=== PATIENT | male | born 1960 | race Caucasian/White ===

== ENCOUNTER 2023-09-11 01:58 | Emergency (ER) | payer BC, SELFPAY ==
[2023-09-11 02:02] VITALS: BP 190/102
--- NOTE | 2023-09-11 04:10 | ED.GENMED ---
History of Present Illness
<SILVERIO Lincoln - Last Filed: 09/11/23 04:22>
General
Chief Complaint: Abdominal Pain
Source: patient and spouse
Time Seen by Provider: 09/11/23 04:01
Travel History
Have you had any contact with someone who has COVID-19?: No
Do you have any symptoms of coronavirus? Fever > 100 degrees, chills, cough, shortness of breath, sore throat, loss of taste or smell, muscle aches, or headache?: No
History of Present Illness
History of Present Illness:
62 year old male with hx of stomach ulcers and diverticulitis with colostomy and reversal in 2016 who presents with L sided abdominal pain that began just prior to arrival. Pt states his pain woke him up from sleep and he was in a cold sweat. Pain
was sharp, 10/10 in onset. States pain feels like his diverticulitis pain in the past. He has not taken anything for the pain. He reports associated nausea. Denies vomiting, diarrhea, constipation, fevers/chills, chest pain, SOB. Currently, he
denies any pain. Pt does not take any medications.
Review of Systems
<SILVERIO Lincoln - Last Filed: 09/11/23 04:22>
Review of Systems
Allergies reviewed?: Yes
All Other Systems: ROS reviewed and negative except as documented in HPI and ROS
Constitutional: Reports night sweats
EENT: Reports no symptoms
Respiratory: Reports no symptoms
Cardiac: Reports no symptoms
ABD/GI: Reports abdominal pain and nausea
: Reports no symptoms
Musculoskeletal: Reports no symptoms
Skin: Reports no symptoms
Neurological: Reports no symptoms
Endocrine: Reports no symptoms
Hematologic/Lymphatic: Reports no symptoms
Psychiatric: Reports no symptoms
Phy Exam
<SILVERIO Lincoln - Last Filed: 09/11/23 04:22>
General Physical Exam
General Presentation: well appearing and no apparent distress
General age: appears stated age
General Skin: warm
General Habitus: normal
General Mental: alert
General Hydration: appears well hydrated
Cardiovascular Exam
Cardiovascular Exam: regular rate/rhythm, no edema, no gallop and no murmur
Pulmonary Exam
Pulmonary Exam: lungs clear, no respiratory distress, no rales, no crackles, no rhonchi, no wheezing and no cough
Gastrointestinal Exam
Gastrointestinal Exam: normal bowel sounds, non tender, soft, no pulsatile mass and non distended
Abdominal Scars: left lower quadrant and jennie-umbilical
Auscultation of Abdomen: normal
Skin Exam
Skin Exam: normal color and warm/dry
Psychiatric Exam
Psychiatric Exam: normal mood/affect
Course
<SILVERIO Lincoln - Last Filed: 09/11/23 04:22>
Orders/Labs/Results
Orders:
Orders
09/11/23 04:41
Urinalysis Reflex To Culture Urgent
Date Specimen was Collected: 09/11/23
Time Specimen was Collected: 04:37
Urine Microscopic Reflex Cult Urgent
09/11/23 06:03
CT Abd/pel Without Iv Or Oral Stat
Comment:
Reason For Exam: left flank pain
Abnormal Lab Results
09/11/23
04:41
Urine Ketones Trace A
(Negative)
Ur Occult Blood Reflex 2+ A
(Negative)
Leukocyte Esterase Rfl Trace A
(Negative)
Urine RBC 16-20 A /HPF
(0-2)
Urine Bacteria (Reflex) Few A
(Negative)
Urine Glucose Trace A
(Negative)
Vital Signs
Initial and Last Documented VS:
Initial Vital Signs
Pulse Resp BP Pulse Ox
76 26 190/102 98
09/11/23 02:02 06/10/24 02:02 09/11/23 02:02 09/11/23 02:02
Last Documented Vital Signs
Temp Pulse Resp BP Pulse Ox
98.4 F 66 14 143/81 97
09/11/23 05:06 09/11/23 05:06 09/11/23 05:06 09/11/23 05:06 09/11/23 05:06
<Zarina Manuel, DO - Last Filed: 09/11/23 06:58>
Orders/Labs/Results
Orders:
Orders
09/11/23 04:41
Urinalysis Reflex To Culture Urgent
Date Specimen was Collected: 09/11/23
Time Specimen was Collected: 04:37
Urine Microscopic Reflex Cult Urgent
09/11/23 06:03
CT Abd/pel Without Iv Or Oral Stat
Comment:
Reason For Exam: left flank pain
Abnormal Lab Results
09/11/23
04:41
Urine Ketones Trace A
(Negative)
Ur Occult Blood Reflex 2+ A
(Negative)
Leukocyte Esterase Rfl Trace A
(Negative)
Urine RBC 16-20 A /HPF
(0-2)
Urine Bacteria (Reflex) Few A
(Negative)
Urine Glucose Trace A
(Negative)
Vital Signs
Initial and Last Documented VS:
Initial Vital Signs
Pulse Resp BP Pulse Ox
76 26 190/102 98
09/11/23 02:02 09/11/23 02:02 09/11/23 02:02 09/11/23 02:02
Last Documented Vital Signs
Temp Pulse Resp BP Pulse Ox
98.4 F 66 14 143/81 97
09/11/23 05:06 09/11/23 05:06 09/11/23 05:06 09/11/23 05:06 09/11/23 05:06
<Monica Isbell MD - Last Filed: 09/11/23 09:07>
Orders/Labs/Results
Orders:
Orders
09/11/23 04:41
Urinalysis Reflex To Culture Urgent
Date Specimen was Collected: 09/11/23
Time Specimen was Collected: 04:37
Urine Microscopic Reflex Cult Urgent
09/11/23 06:03
CT Abd/pel Without Iv Or Oral Stat
Comment:
Reason For Exam: left flank pain
Abnormal Lab Results
09/11/23
04:41
Urine Ketones Trace A
(Negative)
Ur Occult Blood Reflex 2+ A
(Negative)
Leukocyte Esterase Rfl Trace A
(Negative)
Urine RBC 16-20 A /HPF
(0-2)
Urine Bacteria (Reflex) Few A
(Negative)
Urine Glucose Trace A
(Negative)
Vital Signs
Initial and Last Documented VS:
Initial Vital Signs
Pulse Resp BP Pulse Ox
76 26 190/102 98
09/11/23 02:02 09/11/23 02:02 09/11/23 02:02 09/11/23 02:02
Last Documented Vital Signs
Temp Pulse Resp BP Pulse Ox
98.4 F 66 14 143/81 97
09/11/23 05:06 09/11/23 05:06 09/11/23 05:06 09/11/23 05:06 09/11/23 05:06
<SILVERIO Lincoln - Last Filed: 09/11/23 04:22>
MDM/Problems Addressed
Differential Diagnosis Includes:
diverticulitis, nephrolithiasis
MDM/Problems Addressed:
62 year old male who presents with L sided abdominal pain that began just prior to arrival.
Chronic conditions affecting care: Previous abdomnial surgery
<SILVERIO Lincoln - Last Filed: 09/11/23 04:22>
*Critical Care Note
Total Time (30-74mins, 75-104mins- exclusive of procedures): Not Applicable
<Zarina Manuel DO - Last Filed: 09/11/23 06:58>
*Pulse Oximetry
Patient hypoxic: no
<Monica Isbell MD - Last Filed: 09/11/23 09:07>
Update Note
Update Note:
9:00 AM CAT scan result shows mesenteric edema with signs of enteritis and possible obstruction. I went to reassess the patient at the bedside. His abdomen is completely soft and nontender. He reports that he is not nauseous and he has absolutely
no abdominal pain. He reports he had 1 episode of diarrhea in the emergency department. Patient reports that he feels so much better. I explained patient's CAT scan findings to him. Clinically he does not seem to be obstructed given that his
abdomen is completely soft and he has no nausea or belly pain. Patient will to follow-up with his primary care doctor in 2 to 3 days. In addition, patient told to return immediately with any vomiting or abdominal pain.
ED Attending Note
<SILVERIO Lincoln - Last Filed: 09/11/23 04:22>
-
Portions of this chart may have been created with voice recognition software.� Occasional wrong word or��sound alike� substitutions may have occurred due to the inherent limitations of voice recognition software.
<Zarina Manuel DO - Last Filed: 09/11/23 06:58>
ED Attending Note
Patient seen and examined by attending physician: Yes
I performed the substantive portion of visit, reviewed & personally made and approve the management plan that is documented in note by myself or DAYRON.: Yes
I performed a history and physical exam of patient and discussed management with resident, I reviewed resident's note and agree with documented findings and plan of care.: Yes
ED Attending Note:
This is a 62-year-old gentleman who has remote history of diverticulitis with perforation requiring temporary colostomy then reversal. He also has remote history of kidney stones having passed a kidney stone in the right side a number of years ago.
He was feeling well yesterday and well prior to going to bed but then awoke abruptly early this morning with acute onset of severe left-sided abdominal pain accompanied with nausea, vomiting, diaphoresis. He admits to feeling quite restless, unable
to find a comfortable position, pacing due to pain and noted that he was quite pale in color. He was concerned for recurrent diverticulitis. Since arrival to the ED however pain has resolved.
He denies back pain or flank pain, no chest pain, no fever no chills. No dysuria nor urgency nor hematuria.
He did not take anything for pain at home.
GENERAL: 62-year-old gentleman appears his stated age, awake and alert, pleasant, appears in no acute distress. is accompanying.
EYE: . anicteric
NECK: Supple, nontender, no meningismus, no significant adenopathy.
ENT: oral mucosa is moist. No rhinorrhea.
CARDIAC: Regular rate and rhythm. no murmur.
LUNGS: Clear breath sounds bilaterally, no acute respiratory distress, no wheezes/rales/rhonchi
ABDOMEN: Soft, nondistended, without focal tenderness, there is a large soft abdominal wall hernia defect left lower quadrant that is nontender. No r/g, no cvat. normoactive BS. No palpable masses.
NEUROLOGICAL: Alert and oriented x3, no focal neuro deficits. Gait is gomez and steady.
SKIN: Warm and dry, normal color, skin intact. No rash.
MUSCULOSKELETAL: No C/C/E. peripheral pulses are full and equal b/l. No palpable tenderness.
PSYCH: Normal and appropriate interaction.
Concern for acute renal colic, less likely acute small bowel obstruction which has since resolved. His abdomen is soft and nontender, nothing to suggest diverticulitis.
Will continue to observe and will check urinalysis.
09/11/2023 05:50 AM
Patient remains comfortable and pain-free.
Abdomen remains soft and nontender.
Urinalysis shows 16-20 RBCs, calcium oxalate crystals are seen. No evidence of UTI.
A bedside renal ultrasound performed by myself shows very minimal fullness of the renal pelvis on the left there is note of a small intrarenal stone on the left. Right kidney is unremarkable. Due to mild hydronephrosis, history concerning for
acute renal colic, concern for persistent ureteric stone thus will check CT.
Discharge Plan
Departure
Patient Disposition: Home (Routine Discharge)
Date of Disposition: 09/11/23
Time of Disposition: 08:59
Patient with high blood pressure during this ER visit?: Yes
Condition: Good
Discharge Problem:
Enteritis
Instructions: Clear Liquid Diet, Abdominal Pain, BLOOD PRESSURE
Referrals:
NONE,* [Family Provider] -
Landon Ramon MD [Active] - As needed
Activity Restrictions/Additional Instructions:
Please see your primary care doctor for follow-up in 2 to 3 days. Your CAT scan shows inflammation of the small intestine so it is important that you return immediately if you develop any abdominal pain or vomiting.
Interventions
Interventions:
*Risk Screen - Suicide Last Done: 09/11/23 02:02
*General Assessment Last Done: 09/11/23 03:55
*Neglect/Abuse Screening Last Done: 09/11/23 03:55
ED- Fall Risk Assessment Last Done: 09/11/23 08:55
*ED COVID-19 Vaccine History Last Done: 09/11/23 03:55
OM-Vjsmdv-Xffuvtlnqc Assessment Last Done: 09/11/23 03:55
Discharge Date and Time
Print Language: DIVEHI
[2023-09-11 04:57] LABS: Urine Albumin Trace (Neg - Trace); Urine Bilirubin Negative (Negative); Urine Character Clear (Clear); Urine Color Yellow; Urine Glucose Trace (Negative); Urine Ketone Trace (Negative); Urine Leukocyte Trace (Negative); Urine Nitrite Negative (Negative); Urine Occult Blood 2+ (Negative); Urine Urobilinogen Negative (Neg - 1+)
[2023-09-11 05:06] VITALS: BP 143/81
[2023-09-11 05:32] LABS: Urine Calcium Oxalate Crystals Seen; Urine Squamous Cell 0-2 /LPF (Few)
[2023-09-11 05:33] LABS: Urine Bacteria Few (Negative); Urine Red Blood Cell 16-20 /HPF (0-2)
[2023-09-11 09:18] VITALS: BP 138/72
== END 2023-09-11 09:19 | disposition home or self-care (01) ==
LOC: EMR 01:58
PROVIDERS: EMERGENCY PHYSICIAN Emergency Medicine
DX: K52.9 Noninfective gastroenteritis and colitis, unspecified (principal); N13.2 Hydronephrosis with renal and ureteral calculous obstruction; R03.0 Elevated blood-pressure reading, without diagnosis of hypertension; K57.92 Diverticulitis of intestine, part unspecified, without perforation or abscess without bleeding; Z87.11 Personal history of peptic ulcer disease; Z87.442 Personal history of urinary calculi
CPT/HCPCS: 99284; 74176; 81003; 81015